=== PATIENT | female | born 1975 | race Caucasian/White ===

== ENCOUNTER 2021-03-06 19:27 | Emergency (ER) | payer BC, SELFPAY ==
[2021-03-06] VITALS (10 sets, daily range): BP systolic 135–136; BP diastolic 76–78; PULSE 75–92; RESP 12–18; TEMP 35.8; O2SAT 95–100
--- NOTE | ~2021-03-06 | XR_ITS ---
EXAMINATION: XR chest 2V EXAM DATE: 03/06/2021 19:57 INDICATION: Midsternal chest pressure. TECHNIQUE: Frontal and lateral projections of the chest obtained and reviewed. There is no prior adolfo dy for comparison. FINDINGS: The lungs are clear. There are no pleural effusions. The cardiomediastinal silhouette is within normal limits. There is no pneumothorax suspected. The bones and soft tissues are unremarkab le. IMPRESSION: Normal chest x-ray exam. Reviewed, dictated and finalized at location A. IMPRESSION: Normal chest x-ray exam.
--- NOTE | 2021-03-06 19:29 | ECG_ITS ---
Measurements Intervals [place] Rate: 77 P: 60 [place]: 150 QRS: 24 QRSD: 77 T: 57 QT: 350 QTc: 397 Interpretive Statements SINUS RHYTHM POSSIBLE LEFT ATRIAL ENLARGEMENT BORDERLINE ECG Electronically Signed On 03-06-2021 20:37:45 CDT by Romain Oh D.O.
[2021-03-06 19:53] LABS: Basophils Percent Auto 0.4 % (0.2-1.2); Eosinophils Absolute Auto 0.1 K/mm3 (0-0.3); Eosinophils Percent Auto 1.6 % (0-4.4); Hematocrit 43.2 % (37.0-47.0); Hemoglobin 13.8 g/dL (12.0-15.0); Immature Granulocyte Absolute 0.02 K/mm3 (0.00-0.031); Immature Granulocyte Percent A 0.3 % (0-0.5); Lymphocytes Absolute Auto 3.09 K/mm3 (0.9-3.2); Lymphocytes Percent Auto 41.3 % (18.3-44.2); Mean Corpuscular HGB Conc 31.9 g/dl (32-36); Mean Corpuscular Hemoglobin 31.2 pg (26-34); Mean Corpuscular Volume 97.7 fl (80-100); Mean Platelet Volume 9.6 fl (7.4-10.4); Monocytes Absolute Auto 0.5 K/mm3 (0.1-0.6); Monocytes Percent Auto 6.7 % (2.6-8.5); Neutrophils Absolute Auto 3.7 K/mm3 (1.3-6.7); Neutrophils Percent Auto 49.7 % (45.5-73.1); Platelet Count Result 322 k/mm3 (150-375); Red Blood Count 4.42 M/mm3 (4.2-5.4); Red Cell Distribution Width 11.9 % (11.5-14.5); White Blood Count 7.5 K/mm3 (4.5-10.0)
[2021-03-06 20:01] LABS: INR 0.9; Prothrombin Time 12.6 Seconds (11.1-14.7)
[2021-03-06 20:02] LABS: Partial Thromboplastin Time 25.7 SECONDS (22.3-36.8)
[2021-03-06 20:03] LABS: Anion Gap 12 mmol/L (8-16); Blood Urea Nitrogen 19 mg/dL (7-17); Calcium 9.5 mg/dL (8.4-10.2); Carbon Dioxide 30 mmol/L (22-30); Chloride 98 mmol/L (98-107); Estimated CRCL calculation 66 ml/min; Estimated Glomerular Filt Rate > 60; Glucose 114 mg/dL (65-105); Potassium 3.5 mmol/L (3.4-5.0); Sodium 140 mmol/L (137-145)
[2021-03-06 20:15] LABS: Troponin I < 0.012 ng/mL (0.000-0.034)
[2021-03-06] MEDS: Please add drug allergy info to patient profile. 1 EACH XX (20:28)
[2021-03-06] MEDS: ASPIRIN 81 MG CHEWABLE TABLET 324 MG PO (20:28)
[2021-03-06 22:52] LABS: D Dimer 0.27 ug/mL (<0.48)
--- NOTE | 2021-03-06 22:56 | ED.CHESTPAIN ---
HPI - Chest Pain General Chief Complaint: Chest Pain Stated Complaint: chest pain Time Seen by Provider: 03/06/21 21:59 Source: patient Mode of arrival: ambulatory Limitations: no limitations History of Present Illness HPI narrative: Patient is a 45-year-old female complaining of chest pain, midsternal, 3 out of 10, radiating to left arm accompanied by nausea and diaphoresis x3 to 4 days. Patient also states that she has a history of tachycardia and has had to increase her metoprolol dose recently because of it. Patient denies shortness of breath, abdominal pain, vomiting, fever or chills. Related Data Allergies Allergy/AdvReac Type Severity Reaction Status Date / Time fentanyl AdvReac Difficulty Verified 03/06/21 23:52 Breathing Review of Systems Review of Systems: All systems reviewed & are unremarkable except as noted in HPI and below Constitutional: Constitutional: Denies body ache(s), Denies chills, Denies excessive sweating, Denies fatigue, Denies fever(s), Denies headache(s), Denies lethargy, Denies malaise, Denies weakness and Denies weight loss Eyes: Eyes: Denies blurry vision, Denies change in vision and Denies loss of vision ENT: Denies dizziness, Denies ear discharge, Denies headache(s), Denies lip swelling, Denies epistaxis, Denies nasal congestion, Denies neck pain, Denies throat swelling and Denies tongue swelling Cardiovascular: Cardiovascular: Denies diaphoresis, Denies rapid heart rate, Denies edema, Denies irregular heart rhythm, Denies lightheadedness, Denies palpitations, Denies dyspnea and Denies dyspnea on exertion Respiratory: Respiratory: Denies chest congestion, Denies cough, Denies hemoptysis, Denies dyspnea and Denies dyspnea on exertion Gastrointestinal: Gastrointestinal: Denies abdominal pain, Denies melena, Denies hematochezia, Denies diarrhea, Reports nausea, Denies vomiting and Denies hematemesis Musculoskeletal: Musculoskeletal: Denies abnormal gait, Denies deformity, Denies joint swelling, Denies limited range of motion, Denies neck pain and Denies numbness Neurologic: Denies Abnormal speech present, Denies abnormal gait, Denies confusion, Denies dizziness, Denies headache(s), Denies focal weakness, Denies loss of vision, Denies numbness, Denies Other visual disturbances, Denies Sensory deficit (Neuro) and Denies weakness Psychiatric: Psychiatric: Denies confusion, Denies depression, Denies auditory hallucinations, Denies homicidal ideation and Denies suicidal ideation Endocrine: Endocrine: Denies cold intolerance, Denies excessive sweating, Denies fatigue, Denies heat intolerance and Denies palpitations Hematologic/Lymphatic: Hematologic/Lymphatic: Denies easy bleeding and Denies easy bruising Allergic/Immunologic: Allergic/Immunologic: Denies lip swelling, Denies throat swelling and Denies tongue swelling PMFSH Comments Past medical history: SVT, hyperlipidemia Family history: Positive for coronary artery disease and [place] Social history: Non-smoker no EtOH or drug use Exam Const: General: cooperative, healthy appearing, comfortable, no acute distress, well developed, alert and awake; No confusion Orientation/consciousness: oriented to person, oriented to place, oriented to time, patient oriented x3 and No confusion Limitations: no limitations HENMT: Head: normal to inspection, normocephalic and atraumatic Ears: hearing grossly normal bilaterally, TM normal on the right and TM normal on the left General nose exam: Normal external nose present, Normal nares present and No nasal discharge present Face and sinus: normal facial exam Mouth: Yes Normal oral and palatal mucosa present, Yes lip normal, Yes tongue normal and Yes oropharynx normal Throat: posterior oropharynx normal, tonsils normal and uvula midline Eyes: General: appearance normal, both eyes and all related structures Pupils: Equal, round and reactive pupils present EOM: EOMs intact bilaterally Neck: Neck: normal visual inspec
[2021-03-06 23:47] LABS: Troponin I < 0.012 ng/mL (0.000-0.034)
[2021-03-07] MEDS: ONDANSETRON INJ 4 MG/2 ML VIAL IV PUSH (00:21)
[2021-03-07] MEDS: Please add drug allergy info to patient profile. 1 EACH XX (00:21)
[2021-03-07] MEDS: PROMETHAZINE HCL 25 MG/ML AMPUL 12.5 MG IV PUSH (01:29)
[2021-03-07 01:32] VITALS: BP 130/70; PULSE 78; RESP 18; O2SAT 100
[2021-03-07 02:40] VITALS: BP 123/65; PULSE 83; RESP 16; O2SAT 99
== END 2021-03-07 02:41 | disposition home or self-care (01) ==
PROVIDERS: Emergency Medicine; Emergency Provider Emergency Medicine; PCP Internal Medicine
DX: R07.89 Other chest pain (principal); E78.5 Hyperlipidemia, unspecified
CPT/HCPCS: 36415; 71046; 80048; 84484; 85025; 85380; 85610; 85730; 93005; 96374; 96375; 99284; A9270; J2405; J2550

== ENCOUNTER 2023-03-27 22:06 | Emergency (ER) | payer BC, SELFPAY ==
--- NOTE | ~2023-03-27 | CT_ITS ---
Non-contrast CT scan of the Abdomen and Pelvis Clinical indication: Flank pain Technique: 2.5 mm axial scans were obtained through the abdomen and pelvis without intravenous or or al contrast. Dose reduction technique was used on this scan by utilizing automated exposure control a nd iterative reconstruction technique. The dose-length product (DLP) was 410.85 mGy-cm. COMPARISON: 07/14/2017 Findings: Images through the lung bases reveal no abnormalities. Several small nonobstructing left renal stones are present, measuring up to 3 mm. Probable punctate n onobstructing right renal stone noted. No ureteral stone or hydronephrosis identified in either side. The liver, spleen, pancreas, gallbladder, and adrenals appear normal. There is no aortic aneurysm. There is no evidence of bowel obstruction. Images through the pelvis were performed. There is no evidence of ascites or lymphadenopathy. Urinary bladder unremarkable. No adnexal mass seen. No ascites. Impression: Small nonobstructing bilateral renal stones, as detailed above. No ureteral stone or hydronephrosis o n either side. Reviewed, dictated and finalized at [facility]. Impression: Small nonobstructing bilateral renal stones, as detailed above. No ureteral sto ne or hydronephrosis on either side.
[2023-03-27 22:09] VITALS: BP 131/73; PULSE 79; RESP 18; TEMP 36.1; O2SAT 100
[2023-03-27 22:36] VITALS: BP 130/55; PULSE 77; RESP 17; TEMP 36.8; O2SAT 99
[2023-03-27 23:01] LABS: Basophils Percent Auto 0.5 % (0.2-1.2); Eosinophils Absolute Auto 0.2 K/mm3 (0-0.3); Eosinophils Percent Auto 2.5 % (0-4.4); Hemoglobin 12.5 g/dL (12.0-15.0); Immature Granulocyte Absolute 0.01 K/mm3 (0.00-0.031); Immature Granulocyte Percent A 0.2 % (0-0.5); Lymphocytes Percent Auto 49.9 % (18.3-44.2); Mean Corpuscular HGB Conc 32.1 g/dl (32-36); Mean Corpuscular Hemoglobin 31.6 pg (26-34); Mean Corpuscular Volume 98.5 fl (80-100); Mean Platelet Volume 9.7 fl (7.4-10.4); Monocytes Absolute Auto 0.5 K/mm3 (0.1-0.6); Monocytes Percent Auto 7.8 % (2.6-8.5); Neutrophils Absolute Auto 2.4 K/mm3 (1.3-6.7); Neutrophils Percent Auto 39.1 % (45.5-73.1); Platelet Count Result 291 k/mm3 (150-375); Red Blood Count 3.96 M/mm3 (4.2-5.4); Red Cell Distribution Width 12.2 % (11.5-14.5)
[2023-03-27 23:05] LABS: Add Urine Microscopic? YES; Appearance Urine Cloudy (Clear); Bacteria Urine 4+ /hpf; Bilirubin Urine Negative (Negative); Blood Urine Negative (Negative); Color Urine Yellow (Yellow); Glucose Urine UA Negative (Negative); Ketones Urine Trace mg/dL (Negative); Leukocyte Esterase Ur 1+ LEU/UL (Negative); Nitrate Urine Negative (Negative); Non Pathogenic Casts 0-2; Protein Urine Negative (Negative); RBC Urine 0-2 /hpf (0-2); Specific Grav Ur 1.024 (1.001-1.035); Squamous Epithelial Cell Urine Moderate /hpf (Few); pH Urine 5.5 (5.0-9.0)
[2023-03-27 23:45] LABS: Alanine Aminotransferase 33 U/L (6-35); Albumin Level 4.4 g/dL (3.5-5.1); Alkaline Phosphatase 65 U/L (38-126); Anion Gap 6 mmol/L (8-16); Aspartate Amino Transferase 35 U/L (14-36); Bilirubin,Total 0.3 mg/dL (0.2-1.3); Blood Urea Nitrogen 15 mg/dL (7-17); Calcium 9.1 mg/dL (8.4-10.2); Carbon Dioxide 25 mmol/L (22-30); Chloride 108 mmol/L (98-107); Estimated CRCL calculation 67 ml/min; Estimated Glomerular Filt Rate > 60; Glucose 96 mg/dL (65-110); Sodium 139 mmol/L (137-145)
[2023-03-28] MEDS: ONDANSETRON INJ 4 MG/2 ML VIAL IV PUSH (00:01)
[2023-03-28] MEDS: SODIUM CHLORIDE 0.9% IV 1,000 ML 999 ML IV CONT (00:02)
--- NOTE | 2023-03-28 00:15 | ED.GENADULT ---
HPI - General Adult General Chief complaint: Urogenital-Female Stated complaint: left flank pain Time Seen by Provider: 03/27/23 23:12 History of Present Illness HPI narrative: Patient 47-year-old female who presents to the emergency department with chief complaint of right flank pain. Patient reports he has prior history of kidney stones and reports she also has history of UTIs. Patient reports that she has pain in her right flank area reports that for some time she been having some discomfort but reports it got worse in the last 24 hours. Patient denies fever reports that she has had some urinary frequency and urgency. Related Data Allergies Allergy/AdvReac Type Severity Reaction Status Date / Time metronidazole Allergy Mild Unknown Verified 03/27/23 22:07 fentanyl AdvReac Difficulty Verified 03/27/23 22:07 Breathing Review of Systems Review of Systems: A 10 system review of systems was completed on the patient and is negative except for what is stated in the HPI. Nursing and ancillary documentation was reviewed. Exam Narrative: GENERAL: Well-appearing, well-nourished, and in no acute distress. HEAD: Normocephalic, atraumatic. EYES: PERRLA and EOMI. ENT: Nares clear, no rhinorrhea or epistaxis. Mucous membranes moist. NECK: Supple. CHEST: Clear to auscultation. No respiratory distress. HEART: Regular rate and rhythm. No murmur heard. Normal peripheral pulses. ABDOMEN: Soft, nontender, nondistended, normal active bowel sounds. EXTREMITIES: Normal range of motion. No edema. SKIN: Warm, dry, no rash. NEURO: No focal deficits. Alert and oriented x3. PSYCH: Normal mood and affect. Course Vital Signs Vital signs: Vital Signs Temperature 36.1 C L 03/27/23 22:09 Pulse Rate 79 03/27/23 22:09 Respiratory Rate 18 03/27/23 22:09 Blood Pressure 131/73 03/27/23 22:09 Pulse Oximetry 100 03/27/23 22:09 Oxygen Delivery Room Air 03/27/23 22:09 Temperature 36.8 C 03/27/23 22:36 Pulse Rate 77 03/27/23 22:36 Respiratory Rate 17 03/27/23 22:36 Blood Pressure 130/55 L 03/27/23 22:36 Pulse Oximetry 99 03/27/23 22:36 Oxygen Delivery Room Air 03/27/23 22:09 Medical Decision Making [facility] Narrative Medical decision making narrative: Differential diagnosis includes obstructing kidney stone, UTI, pyelonephritis, electrolyte abnormality, sepsis [facility]. The patient which showed a white blood cell count 6.0 hemoglobin was 12.5 electrolytes showed renal function is 0.9 and BUN of 15 liver enzymes within normal limits urinalysis showed 11-20 white blood cells and 4+ bacteria CT scan showed evidence of nonobstructing stones in the left kidney measuring up to 2 mm in size in the right upper pole has a 1 mm stone without obstruction Patient be given a dose of Rocephin in the emergency department and will be discharged home on Keflex and a prescription for [place] Vital Signs Vital Signs: Vital Signs Temperature 36.1 C L 03/27/23 22:09 Pulse Rate 79 03/27/23 22:09 Respiratory Rate 18 03/27/23 22:09 Blood Pressure 131/73 03/27/23 22:09 Pulse Oximetry 100 03/27/23 22:09 Oxygen Delivery Room Air 03/27/23 22:09 Temperature 36.8 C 03/27/23 22:36 Pulse Rate 77 03/27/23 22:36 Respiratory Rate 17 03/27/23 22:36 Blood Pressure 130/55 L 03/27/23 22:36 Pulse Oximetry 99 03/27/23 22:36 Oxygen Delivery Room Air 03/27/23 22:09 Lab Data 03/27/23 22:53 03/27/23 23:28 Labs: Lab Results 03/27/23 03/27/23 Range/Units 22:53 23:28 WBC 6.0 (4.5-10.0) K/mm3 RBC 3.96 L (4.2-5.4) M/mm3 Hgb 12.5 (12.0-15.0) g/dL Hct 39.0 (37.0-47.0) % MCV 98.5 (80-100) fl MCH 31.6 (26-34) pg MCHC 32.1 (32-36) g/dl RDW 12.2 (11.5-14.5) % Plt Count 291 (150-375) k/mm3 MPV 9.7 (7.4-10.4) fl Immature Gran % (Auto) 0.2 (0-0.5) % Neut % (Auto) 39.1 L (45.5-73.1) % Lymph % (Auto)
[2023-03-28] MEDS: MORPHINE SULFATE (*CRX) 4 MG/ML INJ IV PUSH (00:41)
[2023-03-28 02:52] VITALS: BP 116/69; PULSE 75; RESP 19; O2SAT 100
[2023-03-28 03:33] VITALS: BP 111/61; PULSE 77; RESP 13; O2SAT 100
== END 2023-03-28 03:51 | disposition home or self-care (01) ==
PROVIDERS: Emergency Provider Emergency Medicine; PCP Internal Medicine
DX: N39.0 Urinary tract infection, site not specified (principal); Z87.442 Personal history of urinary calculi
CPT/HCPCS: 36415; 74176; 80053; 81001; 81025; 85025; 87086; 96361; 96365; 96375; 99284; J0696; J2270; J2405; J7030

== ENCOUNTER 2023-09-12 14:03 | Outpatient (CLI) | payer BC, SELFPAY ==
--- NOTE | ~2023-09-12 | MR_ITS ---
EXAMINATION: MR cervical spine wo con DATE: 09/12/2023 14:39 INDICATION: Neck pain. TECHNIQUE: Magnetic resonance imaging (MRI) of the cervical spine was performed without intravenous c ontrast. COMPARISON: Cervical spine MRI 01/18/2012 FINDINGS: Bone alignment is normal. Vertebral body heights and intervertebral disc heights are normal . The spinal cord signal intensity is normal. The following disc levels are specifically discussed: C2-C3: The disc does not extend beyond the endplate margin. There is mild right uncovertebral joint o steoarthritis. There is mild bilateral facet joint osteoarthritis. There is mild right neural foramin al stenosis. There is no central canal stenosis. C3-C4: The disc does not extend beyond the endplate margin. There is mild bilateral uncovertebral leslie nt osteoarthritis. There is moderate right and mild left facet joint osteoarthritis. There is mild ri ght neural foraminal stenosis. There is no central canal stenosis. C4-C5: The disc does not extend beyond the endplate margin. There is no uncovertebral joint osteoarth ritis. There is severe bilateral facet joint osteoarthritis. There is mild right neural foraminal aristeo nosis. There is no central canal stenosis. C5-C6: The disc does not extend beyond the endplate margin. There is moderate right uncovertebral leslie nt osteoarthritis. There is mild left facet joint osteoarthritis. There is mild right neural foramina l stenosis. There is no central canal stenosis. C6-C7: There is a central protrusion. There is no uncovertebral joint osteoarthritis. There is mild l ateral facet joint osteoarthritis. There is no neural foraminal stenosis. There is no central canal s tenosis. C7-T1: The disc does not extend beyond the endplate margin. There is no uncovertebral joint osteoarth ritis. There is severe bilateral facet joint osteoarthritis. There is mild bilateral neural foraminal stenosis. There is no central canal stenosis. IMPRESSION: 1. Mild cervical spondylosis. Reviewed, dictated and finalized at location E. [employer]
== END 2023-09-12 14:04 ==
PROVIDERS: PCP Internal Medicine; Visit Provider Nurse Practitioner Family
DX: M43.02 Spondylolysis, cervical region (principal)
CPT/HCPCS: 72141